=== PATIENT | male | born 1970 | race Caucasian/White ===

== ENCOUNTER 2021-06-17 07:04 | Day surgery (SDC) | payer BC ==
[2021-06-17] VITALS (10 sets, daily range): BP systolic 112–131; BP diastolic 67–99; PULSE 61–68; TEMP 98.4
[~2021-06-17] VITALS: Ht 180.3 cm; Wt 112.0 kg
[2021-06-17] MEDS ORDERED: ASPIRIN E.C. 8181 MG PO (07:33)
[2021-06-17] MEDS ORDERED: BENICAR 20MG TA20 MG PO ×2 (07:34)
[2021-06-17 08:10] LABS: HEMATOCRIT 44.1 % (42.0-52.0); HEMOGLOBIN 14.9 g/dl (13.5-18.0); MEAN CELL VOLUME 99 fl (80.0-100.0); MEAN CORPUSCULAR HEMOGLOBIN 34 pg (27-31); MEAN CORPUSCULAR HGB CONC 34 g/dl (33.0-37.0); MEAN PLATELET VOLUME 8.9 fl (7.4-10.4); PLATELET COUNT 245 K/mm3 (130-400); RED BLOOD COUNT 4.45 M/mm3 (4.20-5.60); REDCELL DISTRIBUTION WIDTH-CV 12.9 % (11.5-14.5)
[2021-06-17 08:21] LABS: PROTHROMBIN TIME 11.1 SECONDS (9.7-12.8)
[2021-06-17 08:23] LABS: PARTIAL THROMBOPLASTIN TIME 33.4 SECONDS (26.0-37.0)
[2021-06-17 08:33] LABS: CALCIUM 8.3 mg/dL (8.4-10.2); CREATININE, serum 0.88 mg/dL (0.72-1.25); POTASSIUM 4.8 mmol/L (3.5-4.5)
--- NOTE | 2021-06-17 08:52 | NUR ---
SEE MERGE FOR ALL MEDICATION ADMINISTRATION TIMES/DOSAGES AND INTRA/POST PROCEDURE ASSESSMENTS. PRE PROCEDURAL ASSESSMENT COMPLETED IN [facility].
--- NOTE | 2021-06-17 11:35 | NUR ---
pt to [facility] 12 via bed from slab stripper, pt is awake and alert, in room. radial band on no swelling or leakage noted. VSS. call light in reach. pt will be NPO now due to CTA ordered by Dr Ly, HOB elevated, no c/o
--- NOTE | 2021-06-17 12:31 | NUR ---
PT UP IN W/C TO CT SCANNER FOR TEST
--- NOTE | 2021-06-17 13:35 | NUR ---
2cc of air released from band every 5- 10 min, no bleeding or swelling noted, band removed, bandaid over site with coban for support. iv bolus of 250cc fluid given as ordered after CTA
[2021-06-17] MEDS ORDERED: PROVENTIL0.09 MG/A1 IH (13:59)
--- NOTE | 2021-06-17 14:30 | NUR ---
reviewed discharge inst. with pt on next appt at [facility] tuesday, also care of site and activity level. reviewed moderate sedation with pt and inst. pt will pickling solution maker new RX for inhaler also information given. IV d'cd intact pt up in room, dressed and discharged at 1445 via w/c to car
== END 2021-06-17 14:50 | disposition home or self-care (01) ==
LOC: COL.CAR 07:04
PROVIDERS: Internal Medicine Cardiovascular Disease
DX: I77.810 Thoracic aortic ectasia (principal); I10 Essential (primary) hypertension; J45.909 Unspecified asthma, uncomplicated; F17.210 Nicotine dependence, cigarettes, uncomplicated; Z79.82 Long term (current) use of aspirin; Z79.899 Other long term (current) drug therapy; Z82.49 Family history of ischemic heart disease and other diseases of the circulatory system
CPT/HCPCS: J1644; J2250; J3010; Q9967

== ENCOUNTER → 2021-06-17 | Outpatient (CLI) | payer BC ==
[~2021-06-17] MED LIST: ASPIRIN E.C. 8181 MG PO; BENICAR 20MG TA20 MG PO; PROVENTIL0.09 MG/A1 IH
== END ==
LOC: COL.RAD 11:57
DX: I77.819 Aortic ectasia, unspecified site (principal)
CPT/HCPCS: Q9967